=== PATIENT | male | born 1965 | race Caucasian/White ===

== ENCOUNTER 2022-12-18 18:28 | Inpatient (IN) | payer OTHER ==
[~2022-12-18] VITALS: Ht 182.9 cm; Wt 79.5 kg
[2022-12-18] MEDS ORDERED: OMEP20ER PO (19:40)
[2022-12-18 22:21] LABS: Source, Urine Voided
[2022-12-18 22:28] LABS: Acetaminophen, Random <2.0 ug/mL (10.0-30.0); Alanine Aminotransfer (ALT/SGP 23 U/L (12-78); Albumin/Globulin Ratio 1.1 (0.8-1.8); Alk Phos 110 U/L (50-136); Anion Gap 7 mmol/L (6-16); Aspartate Aminotrans (AST/SGOT 26 U/L (12-37); Bilirubin, Total 1.2 mg/dL (0.1-1.0); Blood Urea Nitrogen 6 mg/dL (8-24); CO2, Blood 25 mmol/L (21-32); Chloride, Blood 98 mmol/L (98-108); Creatinine, Blood 0.75 mg/dL (0.60-1.20); Ethanol (Alcohol), Blood, Med <3 mg/dL; Globulin, Blood 3.8 g/dL (2.2-4.0); Glomerular Filtration Rate 107 (60-); Glucose, Blood 123 mg/dL (70-99); Potassium, Blood 4.2 mmol/L (3.5-5.5); Salicylate 4.8 mg/dL (2.8-20.0); Sodium, Blood 130 mmol/L (136-145); Total Protein, Blood 7.8 g/dL (6.4-8.2)
[2022-12-18 22:29] LABS: BASOPHILS ABSOLUTE AUTO 0.07 K/mm3 (0.00-0.23); BASOPHILS PERCENT AUTO 1 % (0-2); EOSINOPHILS PERCENT AUTO 0 % (0-6); Hematocrit 45.4 % (37.0-53.0); Hemoglobin 16.4 g/dL (13.5-17.5); IMMATURE GRAN ABSOLUTE AUTO 0.04 K/mm3 (0.00-0.10); IMMATURE GRAN PERCENT AUTO 0 % (0-1); LYMPHOCYTES ABSOLUTE AUTO 2.21 K/mm3 (0.84-5.20); LYMPHOCYTES PERCENT AUTO 16 % (21-46); MONOCYTES ABSOLUTE AUTO 0.84 K/mm3 (0.16-1.47); MONOCYTES PERCENT AUTO 6 % (4-13); Mean Corpuscular HGB 32.5 pg (26.0-34.0); Mean Corpuscular HGB Conc 36.1 g/dL (31.5-36.5); Mean Corpuscular Volume 90 fL (80-100); Mean Platelet Volume 9.1 fL (9.1-12.4); NEUTROPHILS ABSOLUTE AUTO 10.87 K/mm3 (1.96-9.15); NEUTROPHILS PERCENT AUTO 77 % (41-73); Platelet Count 271 K/mm3 (150-400); RDW Coefficient Variation 11.8 % (11.7-14.2); RDW Standard Deviation 39.2 fL (35.1-46.3); Red Blood Cell Count 5.04 M/mm3 (4.30-5.90); White Blood Cell Count 14.03 K/mm3 (4.00-11.30)
[2022-12-18 22:36] LABS: Appearance, Urine Clear (Clear); Bilirubin, Urine Neg (Neg); Blood, Urine Neg (Neg); Color, Urine Pale Yellow (P-Yellow); Glucose Qualitative, Urine Neg (Neg); Ketones, Urine Neg (Neg); Leukocyte Esterase, Urine Neg (Neg); Nitrite, Urine Neg (Neg); Protein, Urine Neg (Neg); Urobilinogen, Urine NORM (Normal)
[2022-12-18 22:38] LABS: U Amphetamine Screen Not Detected; U Barbituate Screen DETECTED; U Benzodiazapine Screen Not Detected; U Buprenorphine Screen Not Detected; U Cannabinoids Screen Not Detected; U Cocaine Screen Not Detected; U Methadone Screen Not Detected; U Methamphetamine Screen Not Detected; U Opiates Screen Not Detected; U Oxycodone Screen Not Detected; U Phencyclidine Screen Not Detected; U Propoxyphene Screen Not Detected
--- NOTE | 2022-12-19 01:15 | NUR ---
PATIENT ARRIVED TO ICU4 PCU STATUS. PATIENT A&O AND ABLE TO TRANSFER SELF FROM RNEY TO BED. TREMOR SEEN WHEN ATTEMPTING TO WALK AND WHEN HOLDING ARMS OUT. PATIENT PLACED ON ICU MONITORS. PATIENT VERBALIZED THAT HE IS THINKING OF SELF HARM LESS, AGREEING TO NOT HARM SELF WHILE HERE. PATIENT ABLE TO ANSWER ADMIT QUESTIONS. 1:1 SITTER AT ROOM. PATIENT VERBALIZED THAT HE IS INTERESTED IN GOING TO [facility] FOR ALCOHOL TREATMENT.
--- NOTE | 2022-12-19 02:45 | NUR ---
DOCTOR PATI IN TO SEE PATIENT. NO CHANGES AT THIS TIME. PATIENT C/O JARAMILLO AND INCREASING ANXIETY AFTER ADMIT HX COMPLETE. LIBRIUM AND TYLENOL PO GIVEN ALONG WITH A SNACK OF YOGURT AND KEANU CRACKERS. PATIENT ERVIN WELL. 1:1 SITTER CONTINUES. BELONGINGS PLACED IN LOCKED CUPBOARD
[2022-12-19 04:05] LABS: BASOPHILS ABSOLUTE AUTO 0.03 K/mm3 (0.00-0.23); BASOPHILS PERCENT AUTO 0 % (0-2); EOSINOPHILS ABSOLUTE AUTO 0.07 K/mm3 (0.00-0.68); EOSINOPHILS PERCENT AUTO 1 % (0-6); Hematocrit 40.1 % (37.0-53.0); Hemoglobin 14.2 g/dL (13.5-17.5); IMMATURE GRAN ABSOLUTE AUTO 0.02 K/mm3 (0.00-0.10); IMMATURE GRAN PERCENT AUTO 0 % (0-1); LYMPHOCYTES ABSOLUTE AUTO 2.69 K/mm3 (0.84-5.20); LYMPHOCYTES PERCENT AUTO 32 % (21-46); MONOCYTES ABSOLUTE AUTO 0.67 K/mm3 (0.16-1.47); MONOCYTES PERCENT AUTO 8 % (4-13); Mean Corpuscular HGB 32.9 pg (26.0-34.0); Mean Corpuscular HGB Conc 35.4 g/dL (31.5-36.5); Mean Corpuscular Volume 93 fL (80-100); Mean Platelet Volume 9.5 fL (9.1-12.4); NEUTROPHILS ABSOLUTE AUTO 4.91 K/mm3 (1.96-9.15); NEUTROPHILS PERCENT AUTO 59 % (41-73); Platelet Count 217 K/mm3 (150-400); RDW Standard Deviation 41.4 fL (35.1-46.3); Red Blood Cell Count 4.32 M/mm3 (4.30-5.90); White Blood Cell Count 8.39 K/mm3 (4.00-11.30)
[2022-12-19 04:25] LABS: International Normalized Ratio 1.18; Prothrombin Time Results 12.3 Sec (9.7-11.5)
[2022-12-19 04:50] LABS: Albumin/Globulin Ratio 0.9 (0.8-1.8); Bun/Creatinine Ratio 10.3 (12.0-20.0); Calcium, Blood 7.9 mg/dL (8.5-10.1); Creatinine, Blood 0.78 mg/dL (0.60-1.20); Globulin, Blood 3.2 g/dL (2.2-4.0); Potassium, Blood 3.3 mmol/L (3.5-5.5); Total Protein, Blood 6.2 g/dL (6.4-8.2)
--- NOTE | 2022-12-19 06:07 | NUR ---
SUMMARY PATIENT SLEEPING WHEN UNDISTURBED. LIBRIUM AND TYLENOL PO GIVEN WITH GOOD RESULTS. OCCASIONAL NONPRODUCTIVE COUGH. UP TO BSC ONCE DURING THE NIGHT PASSING LARGE LOOSE BROWN STOOL. PATIENT VERBALIZED THAT HE HAS BEEN HAVING LOOSE STOOLS AT HOME ALSO. 1:1 SITTER REMAINS AT DOOR DUE TO SI.
--- NOTE | 2022-12-19 14:06 | NUR ---
Spiritual Care | Nurse Request Pt. is in bed, and displays evidence of apprehension but ultimately welcomes my visit. Pt. is significantly unsettled about needing just "one cigarette." This professor of languages asked him if he had a nictoine patch, and he affirmed that he did. Pt. requested this professor of languages advocate for him. Listened with empathy without making any promises to the Pt. Pt. did display evidence of trust and respect. Facilitated a life story, and the Pt. became emotional about his two boys. One will not talk to him. Continued to listen with empathy and a calming presence. Pt. verbalized that he believed in a higher power, and welcomed me to pray with him. Prayed with Pt. Pt. verbalized gratitude for the visit and for listening to him. Updated Pts. nurse regarding the Pts. request.
--- NOTE | 2022-12-19 18:11 | NUR ---
SUMMARY PT A/O X4. A LITTLE UNSTEADY ON FEET FROM TREMORS. ONE PERSON ASSIST OOB. TOLERATING DIET. STATES HE IS FEELING AN ALL TIME LOW IN HIS LIFE. 1:1 SITTER AND CAMERAS ON FOR PT SAFETY R/T SI. PT IS INTERACTIVE WITH STAFF. WANTS TO STOP DRINKING AND WANTS TO GO TO [facility] AFTER HERE. LIBRIUM AND ATIVAN GIVEN T/O THE DAY PER CIWA SCORES. NO SIGN OF DISTRESS.
[2022-12-20 04:21] LABS: BASOPHILS ABSOLUTE AUTO 0.04 K/mm3 (0.00-0.23); BASOPHILS PERCENT AUTO 1 % (0-2); EOSINOPHILS PERCENT AUTO 1 % (0-6); Hematocrit 42.4 % (37.0-53.0); Hemoglobin 14.3 g/dL (13.5-17.5); IMMATURE GRAN ABSOLUTE AUTO 0.02 K/mm3 (0.00-0.10); IMMATURE GRAN PERCENT AUTO 0 % (0-1); LYMPHOCYTES ABSOLUTE AUTO 3.07 K/mm3 (0.84-5.20); LYMPHOCYTES PERCENT AUTO 42 % (21-46); MONOCYTES ABSOLUTE AUTO 0.55 K/mm3 (0.16-1.47); MONOCYTES PERCENT AUTO 8 % (4-13); Mean Corpuscular HGB Conc 33.7 g/dL (31.5-36.5); Mean Corpuscular Volume 95 fL (80-100); Mean Platelet Volume 9.9 fL (9.1-12.4); NEUTROPHILS ABSOLUTE AUTO 3.59 K/mm3 (1.96-9.15); NEUTROPHILS PERCENT AUTO 49 % (41-73); Platelet Count 210 K/mm3 (150-400); RDW Standard Deviation 41.9 fL (35.1-46.3); Red Blood Cell Count 4.47 M/mm3 (4.30-5.90); White Blood Cell Count 7.37 K/mm3 (4.00-11.30)
[2022-12-20 05:32] LABS: Albumin/Globulin Ratio 0.9 (0.8-1.8); Bilirubin, Total 0.6 mg/dL (0.1-1.0); Bun/Creatinine Ratio 12.9 (12.0-20.0); Calcium, Blood 8.1 mg/dL (8.5-10.1); Creatinine, Blood 0.78 mg/dL (0.60-1.20); Globulin, Blood 3.4 g/dL (2.2-4.0); Potassium, Blood 3.7 mmol/L (3.5-5.5); Total Protein, Blood 6.4 g/dL (6.4-8.2)
--- NOTE | 2022-12-20 06:07 | NUR ---
SHIFT SUMMARY: Last night at start of shift, pt was anxious, confused, tremulous and complained of a headache. Medicated with PRNs per CIWA protocol as well as scheduled night-time meds. After combination of librium, ativan and scheduled meds, he became very drowsy yet arousable. He did not require any additional PRNs for several hours. He had 2 episodes of incontinence, large amount of liquid stool. Ambulated with assistance to bathroom. He is somewhat unsteady and requires steadying assist. He ate several snacks overnight. Keeps asking about whether he will be accepted to [facility].
--- NOTE | 2022-12-20 11:34 | NUR ---
CRISTHIAN WAS INCONTINENT IN HIS EFFORT TO USE THE URINAL. HE IS FEELING VERY AGITATED HE WOULD LIKE TO KNOW THE PLAN FOR HIM. HE EXPRESSES THAT HE FELT LIKE THINGS WERE HAPPENING YESTERDAY, BUT HE'S JUST STARING AT THE [place] TODAY. COVID SWAB DONE IN ANTICIPATION OF PLACEMENT.
--- NOTE | 2022-12-20 12:04 | NUR ---
PRECOMMITTMENT SENIOR CONTROL SYSTEMS ENGINEER PHONED IN AND SPOKE WITH ME INITIALLY, NOW SPEAKING WITH THE PATIENT FOR LAST 20 MINUTES.
[2022-12-20 12:10] LABS: Influenza A, PCR NEGATIVE (NEGATIVE); Influenza B, PCR NEGATIVE (NEGATIVE); Resp Syncytial Virus, PCR NEGATIVE (NEGATIVE); SARS-Cov-2 (COVID-19) PCR, MMC NEGATIVE (NEGATIVE)
--- NOTE | 2022-12-20 13:50 | NUR ---
PT TOOK A BRIEF NAP, CONTINUES TO QUESTION "THE PLAN" AND WHAT IS HAPPENING. CONTINUES WITH OCC CONGESTED "SMOKER'S" COUGH. PHONED IN ASKING IF TRANSPORT HAS BEEN ARRANGED FOR PATIENT.
--- NOTE | 2022-12-20 16:35 | NUR ---
PT AWARE THAT HE WILL BE GOING TO A FACILITY NEAR THE [facility], HE MESSAGED HIS ROOMMATE AND HIS BOSS VIA HIS PHONE TO LET THEM KNOW. HE WAS GIVEN A DOSE OF LIBRIUM AND IS CURRENTLY QUIETLY RESTING. SITTER REMAINS AT BEDSIDE.
--- NOTE | 2022-12-21 00:47 | NUR ---
UPDATE ON PATIENT TRANSFER: I called Justin the RN from [facility] where I was under the impression the pt was accepted. Per Justin, he has not been accepted yet, as he will need to be independent with ADLs and a low fall risk because patients do not have close supervision at the facility. He is still unsteady on his feet and a high fall risk, and is still requiring some assistance with ADLs. He is also still receiving medications for alcohol withdrawal, which per Justin it would be ideal if he were stable from that standpoint prior to transfer. When he meets these criteria, they will need an MD-MD sign off and they are still waiting for a bed.
--- NOTE | 2022-12-21 05:05 | NUR ---
SHIFT SUMMARY: Pt was initially anxious and restless with withdrawal symptoms at beginning of shift. He also expressed that he was anxious due to another patient yelling next door. Medicated with 2mg ativan which eased symptoms. After giving scheduled night-time meds, he fell asleep and slept for most of the night. Around 0200, he woke up with anxiety and some confusion, complained of nausea, asking again about the plan for transferring him to a treatment facility. I explained the criteria required for him to transfer to the facility and that he was not ready at this time due to still needing assistance with ADLs and being very unsteady on his feet. I medicated him with 25mg of librium instead of 50mg in attempt to taper down. The 25 of librium was effective, pt went back to sleep and has been calm and cooperative for the rest of the shift. ORDER CALLER assisted him to the bathroom and he accidentally urinated all over the floor. Per ORDER CALLER, he was very unsteady and required hands-on assist with ambulation. He denies suicidal ideation at this time.
[2022-12-21 09:17] LABS: BASOPHILS ABSOLUTE AUTO 0.03 K/mm3 (0.00-0.23); BASOPHILS PERCENT AUTO 0 % (0-2); EOSINOPHILS ABSOLUTE AUTO 0.12 K/mm3 (0.00-0.68); EOSINOPHILS PERCENT AUTO 2 % (0-6); Hematocrit 44.8 % (37.0-53.0); Hemoglobin 15.4 g/dL (13.5-17.5); IMMATURE GRAN ABSOLUTE AUTO 0.03 K/mm3 (0.00-0.10); IMMATURE GRAN PERCENT AUTO 0 % (0-1); LYMPHOCYTES ABSOLUTE AUTO 2.33 K/mm3 (0.84-5.20); LYMPHOCYTES PERCENT AUTO 30 % (21-46); MONOCYTES PERCENT AUTO 5 % (4-13); Mean Corpuscular HGB 32.6 pg (26.0-34.0); Mean Corpuscular HGB Conc 34.4 g/dL (31.5-36.5); Mean Corpuscular Volume 95 fL (80-100); Mean Platelet Volume 9.5 fL (9.1-12.4); NEUTROPHILS PERCENT AUTO 62 % (41-73); Platelet Count 193 K/mm3 (150-400); RDW Coefficient Variation 11.9 % (11.7-14.2); RDW Standard Deviation 41.9 fL (35.1-46.3); Red Blood Cell Count 4.73 M/mm3 (4.30-5.90); White Blood Cell Count 7.71 K/mm3 (4.00-11.30)
[2022-12-21 09:47] LABS: Albumin, Blood 3.3 g/dL (3.4-5.0); Albumin/Globulin Ratio 0.9 (0.8-1.8); Bilirubin, Total 0.5 mg/dL (0.1-1.0); Bun/Creatinine Ratio 12.6 (12.0-20.0); Calcium, Blood 8.5 mg/dL (8.5-10.1); Creatinine, Blood 0.8 mg/dL (0.60-1.20); Globulin, Blood 3.6 g/dL (2.2-4.0); Potassium, Blood 3.5 mmol/L (3.5-5.5); Total Protein, Blood 6.9 g/dL (6.4-8.2)
--- NOTE | 2022-12-21 10:00 | NUR ---
CRISTHIAN HAS BEEN UP AND ABOUT THE ROOM, HE CONTINUES WITH DIARRHEA AND IS MEDICATED FOR SUCH. HE IS ABLE TO USE THE BATHROOM, BRUSH HIS TEETH AND MOVE ABOUT THE ROOM WITHOUT INCIDENT. AWAIT TRANSFER TO INPATIENT FACILITY.
[2022-12-21] MEDS ORDERED: CELEXA40 M1 PO (14:40)
[2022-12-21] MEDS ORDERED: NICO21TP TOP (14:41)
[2022-12-21] MEDS ORDERED: MIRT15 PO (14:41)
--- NOTE | 2022-12-21 14:56 | NUR ---
CRISTHIAN HAS BEEN SLEEPING ON AND OFF TODAY, HE HAS BEEN COOPERATIVE WITH CARE. HE IS USUALLY AWAKENED BY STAFF MEMBERS AND PROVIDERS CAUSING A STIR AT FIRST. HE IS USUALLY "NOT ALLOWED TO WAKE UP AND CLEAR HIS HEAD". HE WAS REMINDED BY P/T THAT HE WILL NEED TO BE AN ACTIVE PARTICIPANT IN HIS CARE AT THE NEW FACILITY. HIS DISCHARGE INSTRUCTIONS AND INFORMATION ABOUT HIS TRANSFER TO THE INPATIENT IS SHARED WITH HIM, PRINTED PAPERWORK GIVEN TO HIM. QUESTIONS ANSWERED. WILL AWAIT TRANSPORT, RETURN HIS BELONGINGS AND MEDICATE PRIOR TO HIS DEPARTURE.
--- NOTE | 2022-12-21 16:49 | NUR ---
RECEIVED PHONE CALL THAT SECURE TRANSPORT IS NOT AVAILABLE, MAY STILL BECOME AVAILABLE THIS EVENING, OTHERWISE TOMORROW. COMMUNICATED TO PT, MUCH TO HIS DISPLEASURE. HE WAS MEDICATED WITH LIBRIUM AND TYLENOL FOR PROPHYLACTIC ROAD TRIP AND SEVERE ANXIETY. PT IS NOW RESTING. SITTER REMAINS AT DOOR.
--- NOTE | 2022-12-21 20:17 | NUR ---
ASSUMED CARE PT IS A&O X4 W/ SOME INTERMITTANT FORGETFULNESS. PT IS ASKING ABOUT WHY HE'S STILL HERE WHEN HE WAS INFORMED EARLIER BY PREVIOUS RN (PER REPORT). PT HAS A CIWA OF 9~ W/ SYMPTOMS OF ANXIETY, JARAMILLO, TREMOR, ITCHINESS. LIBRIUM WAS GIVEN. SITTER AT BEDSIDE.
--- NOTE | 2022-12-22 05:24 | NUR ---
SHIFT SUMMARY PT IS CURRENTLY SLEEPING; SPO2 >92%, MAP >65, HR IN THE 80-90'S T/O NIGHT. PT ASKED 4 TIMES SINCE BEGINNING OF SHIFT FOR UPDATES ABOUT TRANSFER; INFORMED PT THAT THEY WERE UNABLE TO GET SECURE TRANSPORT AND THAT IT IS CURRENTLY BEING WORKED ON (PER REPORT); PT IS MILDLY ANXIOUS WHILE AWAKE. NO ACUTE EVENTS OVERNIGHT.
--- NOTE | 2022-12-22 07:51 | NUR ---
Assumed care at approximately 0700. Report received from avi VICENTE. Pt sleeping in bed, on RA, VS stable. No acute events overnight. Will continue to monitor.
[2022-12-22 09:00] LABS: SARS-Cov-2 (COVID-19) PCR, MMC Negative (NEGATIVE)
--- NOTE | 2022-12-22 12:14 | NUR ---
Pt transferred to [facility] at 1210. Report given to accepting RN. Pt vitals stable at time of transfer, all pt belongings sent with him on transport. Pt wheeled out to transport service by viscose cellar charge hand.
== END 2022-12-22 12:20 | DRG 897 ==
LOC: ER 18:28 → ICUW 18:29 → ICUE 12-19 02:27
PROVIDERS: Emergency Medicine; Family Medicine; ADMIT Student in an Organized Health Care Education/Training Program
PROC: HZ2ZZZZ Detoxification Services for Substance Abuse Treatment (ICD-10-PCS; principal; 2022-12-19)
DX: F10.239 Alcohol dependence with withdrawal, unspecified (principal); E87.1 Hypo-osmolality and hyponatremia; R45.851 Suicidal ideations; E83.51 Hypocalcemia; E87.6 Hypokalemia; F32.A Depression, unspecified; F41.9 Anxiety disorder, unspecified; F17.210 Nicotine dependence, cigarettes, uncomplicated; Y90.0 Blood alcohol level of less than 20 mg/100 ml; Z20.822 Contact with and (suspected) exposure to COVID-19; Z79.899 Other long term (current) drug therapy; Z28.21 Immunization not carried out because of patient refusal
CPT/HCPCS: 0241U; 36415; 80053; 81003; 83690; 83735; 83930; 83935; 84100; 84300; 85025; 85610; 93005; 93010; 96361; 96365; 96368; 96372; 96375; 96376; 97162; 97530; 99285-25; A9270; G0378; G0480; J1650; J2060; J2560; J3411; J3480; J7030; J7050; Q3014; U0004

== ENCOUNTER 2023-04-27 17:36 | Observation (INO) | payer OTHER ==
[~2023-04-27] VITALS: Ht 182.9 cm; Wt 83.9 kg
[~2023-04-27 17:36] MED LIST: CELEXA40 M1 PO; MIRT15 PO; NICO21TP TOP; OMEP20ER PO
[2023-04-27 18:08] LABS: Source, Urine Clean Catch
[2023-04-27 18:12] LABS: Appearance, Urine Clear (Clear); Bilirubin, Urine Neg (Neg); Blood, Urine Neg (Neg); Glucose Qualitative, Urine Neg (Neg); Ketones, Urine Neg (Neg); Leukocyte Esterase, Urine Neg (Neg); Nitrite, Urine Neg (Neg); Protein, Urine Neg (Neg); Urobilinogen, Urine NORM (Normal)
[2023-04-27 18:13] LABS: Color, Urine Pale Yellow (P-Yellow)
[2023-04-27 18:18] LABS: BASOPHILS ABSOLUTE AUTO 0.05 K/mm3 (0.00-0.23); BASOPHILS PERCENT AUTO 1 % (0-2); EOSINOPHILS ABSOLUTE AUTO 0.05 K/mm3 (0.00-0.68); EOSINOPHILS PERCENT AUTO 1 % (0-6); Hematocrit 45.2 % (37.0-53.0); Hemoglobin 16.2 g/dL (13.5-17.5); IMMATURE GRAN ABSOLUTE AUTO 0.03 K/mm3 (0.00-0.10); IMMATURE GRAN PERCENT AUTO 0 % (0-1); LYMPHOCYTES ABSOLUTE AUTO 3.36 K/mm3 (0.84-5.20); LYMPHOCYTES PERCENT AUTO 34 % (21-46); MONOCYTES ABSOLUTE AUTO 0.62 K/mm3 (0.16-1.47); MONOCYTES PERCENT AUTO 6 % (4-13); Mean Corpuscular HGB 33.2 pg (26.0-34.0); Mean Corpuscular HGB Conc 35.8 g/dL (31.5-36.5); Mean Corpuscular Volume 93 fL (80-100); Mean Platelet Volume 8.7 fL (9.1-12.4); NEUTROPHILS ABSOLUTE AUTO 5.88 K/mm3 (1.96-9.15); NEUTROPHILS PERCENT AUTO 59 % (41-73); Platelet Count 182 K/mm3 (150-400); RDW Coefficient Variation 12.1 % (11.7-14.2); RDW Standard Deviation 41.8 fL (35.1-46.3); Red Blood Cell Count 4.88 M/mm3 (4.30-5.90); White Blood Cell Count 9.99 K/mm3 (4.00-11.30)
[2023-04-27 18:45] LABS: Alanine Aminotransfer (ALT/SGP 45 U/L (12-78); Albumin, Blood 3.5 g/dL (3.4-5.0); Albumin/Globulin Ratio 0.9 (0.8-1.8); Alk Phos 103 U/L (50-136); Anion Gap 8 mmol/L (6-16); Aspartate Aminotrans (AST/SGOT 57 U/L (12-37); Bilirubin, Total 0.6 mg/dL (0.1-1.0); Blood Urea Nitrogen 7 mg/dL (8-24); Bun/Creatinine Ratio 8.8 (12.0-20.0); CO2, Blood 24 mmol/L (21-32); Calcium, Blood 8.2 mg/dL (8.5-10.1); Chloride, Blood 103 mmol/L (98-108); Ethanol (Alcohol), Blood, Med 311 mg/dL; Globulin, Blood 4.1 g/dL (2.2-4.0); Glomerular Filtration Rate 105 (60-); Glucose, Blood 96 mg/dL (70-99); Potassium, Blood 4.1 mmol/L (3.5-5.5); Salicylate 8.2 mg/dL (2.8-20.0); Sodium, Blood 135 mmol/L (136-145); Thyroxine (T4) 9.1 ug/dL (4.5-12.1); Total Protein, Blood 7.6 g/dL (6.4-8.2)
[2023-04-27 18:45] LABS: U Amphetamine Screen Not Detected; U Barbituate Screen Not Detected; U Benzodiazapine Screen Not Detected; U Buprenorphine Screen Not Detected; U Cannabinoids Screen Not Detected; U Cocaine Screen Not Detected; U Methadone Screen Not Detected; U Methamphetamine Screen Not Detected; U Opiates Screen Not Detected; U Oxycodone Screen Not Detected; U Phencyclidine Screen Not Detected; U Propoxyphene Screen Not Detected
[2023-04-27 18:46] LABS: Acetaminophen, Random <2.0 ug/mL (10.0-30.0)
[2023-04-27] MEDS ORDERED: Naltrexone HCl50 MG PO (20:44)
[2023-04-28 01:09] LABS: Influenza A, PCR NEGATIVE (NEGATIVE); Influenza B, PCR NEGATIVE (NEGATIVE); Resp Syncytial Virus, PCR NEGATIVE (NEGATIVE); SARS-Cov-2 (COVID-19) PCR, MMC NEGATIVE (NEGATIVE)
[2023-04-28 10:06] VITALS: BP 135/86
[2023-04-28] MEDS ORDERED: CHLO10 PO (11:17)
== END 2023-04-28 11:52 | disposition home or self-care (01) ==
LOC: ER 17:36 → EOR 17:37
PROVIDERS: Physician Assistant; ADMIT Emergency Medicine
DX: F43.23 Adjustment disorder with mixed anxiety and depressed mood (principal); F10.129 Alcohol abuse with intoxication, unspecified
CPT/HCPCS: 0241U; 80053; 81003; 84436; 85025; 86592; 99285; A9270; G0378; G0480; Q3014

== ENCOUNTER 2023-05-28 06:16 | Observation (INO) | payer OTHER ==
[~2023-05-28] VITALS: Ht 172.7 cm; Wt 68.0 kg
[~2023-05-28 06:16] MED LIST changes: +CHLO10 PO; +Naltrexone HCl50 MG PO
[2023-05-28] MEDS ORDERED: ZOLOFT50 MG PO (06:35)
[2023-05-28 06:43] LABS: BASOPHILS ABSOLUTE AUTO 0.05 K/mm3 (0.00-0.23); BASOPHILS PERCENT AUTO 1 % (0-2); EOSINOPHILS ABSOLUTE AUTO 0.06 K/mm3 (0.00-0.68); EOSINOPHILS PERCENT AUTO 1 % (0-6); Hemoglobin 17.3 g/dL (13.5-17.5); IMMATURE GRAN ABSOLUTE AUTO 0.04 K/mm3 (0.00-0.10); IMMATURE GRAN PERCENT AUTO 1 % (0-1); LYMPHOCYTES ABSOLUTE AUTO 2.29 K/mm3 (0.84-5.20); LYMPHOCYTES PERCENT AUTO 35 % (21-46); MONOCYTES ABSOLUTE AUTO 0.64 K/mm3 (0.16-1.47); MONOCYTES PERCENT AUTO 10 % (4-13); Mean Corpuscular HGB 32.6 pg (26.0-34.0); Mean Corpuscular HGB Conc 35.3 g/dL (31.5-36.5); Mean Corpuscular Volume 93 fL (80-100); Mean Platelet Volume 9.4 fL (9.1-12.4); NEUTROPHILS ABSOLUTE AUTO 3.52 K/mm3 (1.96-9.15); NEUTROPHILS PERCENT AUTO 53 % (41-73); Platelet Count 182 K/mm3 (150-400); RDW Coefficient Variation 11.5 % (11.7-14.2); RDW Standard Deviation 39.5 fL (35.1-46.3)
[2023-05-28 07:01] LABS: Source, Urine Voided
[2023-05-28 07:05] LABS: Ethanol (Alcohol), Blood, Med 254 mg/dL; Salicylate 5.8 mg/dL (2.8-20.0)
[2023-05-28 07:09] LABS: Acetaminophen, Random <2.0 ug/mL (10.0-30.0); Alanine Aminotransfer (ALT/SGP 103 U/L (12-78); Albumin/Globulin Ratio 0.9 (0.8-1.8); Alk Phos 143 U/L (50-136); Anion Gap 10 mmol/L (6-16); Aspartate Aminotrans (AST/SGOT 164 U/L (12-37); Bilirubin, Total 0.4 mg/dL (0.1-1.0); Blood Urea Nitrogen 7 mg/dL (8-24); Bun/Creatinine Ratio 6.7 (12.0-20.0); CO2, Blood 22 mmol/L (21-32); Calcium, Blood 7.5 mg/dL (8.5-10.1); Chloride, Blood 103 mmol/L (98-108); Creatinine, Blood 1.05 mg/dL (0.60-1.20); Globulin, Blood 3.4 g/dL (2.2-4.0); Glomerular Filtration Rate 84 (60-); Glucose, Blood 190 mg/dL (70-99); Potassium, Blood 3.7 mmol/L (3.5-5.5); Sodium, Blood 135 mmol/L (136-145); Total Protein, Blood 6.4 g/dL (6.4-8.2)
[2023-05-28 07:11] LABS: Appearance, Urine Clear (Clear); Bilirubin, Urine Neg (Neg); Blood, Urine Neg (Neg); Color, Urine Yellow (P-Yellow); Glucose Qualitative, Urine Neg (Neg); Ketones, Urine Neg (Neg); Leukocyte Esterase, Urine Neg (Neg); Nitrite, Urine Neg (Neg); Protein, Urine 1+ (Neg); Urobilinogen, Urine NORM (Normal); pH, Urine 6.5 (5.0-8.0)
[2023-05-28 07:41] LABS: U Amphetamine Screen Not Detected; U Barbituate Screen Not Detected; U Benzodiazapine Screen DETECTED; U Buprenorphine Screen Not Detected; U Cannabinoids Screen Not Detected; U Cocaine Screen Not Detected; U Methadone Screen Not Detected; U Methamphetamine Screen Not Detected; U Opiates Screen Not Detected; U Oxycodone Screen Not Detected; U Phencyclidine Screen Not Detected; U Propoxyphene Screen Not Detected
[2023-05-29 08:55] VITALS: BP 145/98
== END 2023-05-29 10:32 | disposition other institution (70) ==
LOC: ER 06:16 → EOR 06:17
PROVIDERS: ADMIT Emergency Medicine
DX: F33.9 Major depressive disorder, recurrent, unspecified (principal); F10.229 Alcohol dependence with intoxication, unspecified; F10.239 Alcohol dependence with withdrawal, unspecified; F17.210 Nicotine dependence, cigarettes, uncomplicated; Z79.899 Other long term (current) drug therapy; Y90.8 Blood alcohol level of 240 mg/100 ml or more
CPT/HCPCS: 80053; 85025; 93005; 93010; 96372; 99285-25; A9270; G0378; G0480; J2060